=== PATIENT | female | born 1985 | race Caucasian/White ===

== ENCOUNTER 2022-05-26 15:17 | Emergency (ER) | payer MEDICAID ==
[~2022-05-26] VITALS: Ht 177 cm; Wt 114.0 kg
[2022-05-26] MEDS ORDERED: diphenhydrAMINE 50 MG/ML INJ (BENADRYL) IM ONE (16:00)
--- NOTE | 2022-05-26 16:32 | ED Headache ---
General Chief Complaint: Head/Cervical Problems Stated Complaint: MIGRAINE/VOMITING 19 WKS PREG Nursing Triage Note: PT IS 19 WEEKS , HX OF MIGRAINES, STATES MIGRAINE SINCE LAST NIGHT, HAS TAKEN TYLENOL 1 HR AGO BUT THEN THREW UP. G-7 P-2. RECENTLY HAD A SINUS INFECTION FINISHED WITH ABX (AFRICA LEZAMA) History of Present Illness Date Seen by Provider: May 26, 2022 Time Seen by Provider: 03:47 Initial Comments 37yo F 19.2weeks with h/o migraines presents to the ED with a 10/10 migraine with associated photophobia, nausea, and vomiting that started yesterday at 5pm. Pt states that her migraine originally presented similar to past episodes, localized primarily to the frontal region but did not entirely respond to treatments that have relieved her migraines in the past. Pt states that normally she is able to relieve her migraines by taking a bath, using ice packs, and tylenol. Yesterday, pt states that her migraine improved some with tylenol but came back the next morning. Today, pt states that she was unable to relieve her migraine. Pt states that she took two 325mg tylenol at ~2pm today but vomited soon after and her migraine remained unchanged. Pt notes that she experienced 5 episodes of vomiting today d/t her migraine, which is normal for her migraines as well as since she's been . Pt has no h/o increased migraines in previous pregnancies or preeclampsia. Pt's states that her blood pressure has been overall within normal ranges, her last OBGYN appt is was 135/80 and today is 121/58. Pt was recently treated for a sinus and ear infection 12 days ago. Pt was prescribed amoxacillin and finished her course 3 days ago. Pt denies current symptoms being similar to her sinus infection and states complete resolution of symptoms associated with it prior to onset of migraine. Pt denies blurred or loss of vision, recent trauma to head, changes in medications or recent vaccinations, CP, SOB, focal neurologic deficits, weakness, and abd pain. (AFRICA LEZAMA) Allergies and Home Medications Allergies Coded Allergies: No Known Drug Allergies (Unverified , 05/26/22) Patient Home Medication List Home Medication List Reviewed: Yes (AFRICA LEZAMA) Review of Systems Review of Systems Constitutional: No chills, No fever, No weakness Eyes: Denies Blindness, Denies Blurred Vision; Photophobia; Denies Vision Changes Ears, Nose, Mouth, Throat: denies ear pain, denies mouth pain Respiratory: No dyspnea on exertion, No short of breath Cardiovascular: No chest pain, No edema Gastrointestinal: No abdominal pain, No hematemesis, No melena, No nausea, No vomiting Genitourinary: No dysuria, No hematuria Expected Date of Delivery: Oct 19, 2022 Musculoskeletal: No back pain, No neck pain Skin: No change in color, No change in hair/nails Psychiatric/Neurological: No Symptoms Reported (AFRICA LEZAMA) Past Lycqozo-Tganij-Xjvqxk Hx Patient Social History Tobacco Use?: Yes Tobacco type used: Cigarettes Smoking Status: Current Everyday Smoker Substance use?: No Alcohol Use?: No (AFRICA LEZAMA) Past Medical History Surgery/Hospitalization HX: APPENDECTOMY Surgeries: Yes Adenoidectomy Respiratory: Yes Asthma Cardiac: No Neurological: Yes Headaches /Migraines Expected Date of Delivery: Oct 19, 2022 Last Menstrual Period: Jan 12, 2022 Reproductive Disorders: Yes Female Reproductive Disorders: Polycystic Ovarian Dis Genitourinary: No Gastrointestinal: No HEENT: No Cancer: No Psychosocial: Yes Anxiety, Bipolar, Depression Integumentary: No (AFRICA LEZAMA) Family Medical History Heart Disease (MATERNAL SIDE), Cancer (BREAST- MOTHER, MATERNAL GRANDMOTHER, PATERNAL GRANDMOTHER; BONE CX-MATERNAL GRANDMOTHER), Diabetes (AFRICA LEZAMA) Physical Exam Vital Signs Vital Signs - First Documented 05/26/22 15:23 Temp 35.7 Pulse 78 Resp 20 B/P (MAP) 121/58 (79) Pulse Ox 96 O2 Delivery Room Air ([facility]) Vital Signs Capillary Refill : Less Than 3 Seconds (AFRICA LEZAMA) Height, Weight, BMI Height: '" Weight: lbs. oz. kg; 36.00 BMI Method: General Appearance: no apparent distress, obese HEENT: PERRL/EOMI, photophobia Neck: non-tender, full range of motion Cardiovascular: regular rate, rhythm, no murmur Respiratory: lungs clear, normal breath sounds, no respiratory distress, no accessory muscle use Gastrointestinal: non tender, soft Back: no CVA tenderness, no vertebral tenderness Extremities: no pedal edema, no calf tenderness Psychiatric: alert, oriented x 3 Crainal Nerves: normal hearing, normal speech, PERRL Motor/Sensory: no motor deficit, no sensory deficit Skin: normal color, warm/dry (AFRICA LEZAMA) Progress/Results/Core Measures Results/Orders My Orders Orders - ANTHONY PATEL DO Diphenhydramine Injection (Benadryl Inje (05/26/22 16:00) (ANTHONY PATEL DO) Medications Given in ED Current Medications Medications Dose Ordered Sig/Jam Route Start Time Stop Time Status Last Admin Dose Admin Diphenhydramine HCl 50 mg ONCE ONCE IM 05/26/22 16:00 05/26/22 16:01 DC 05/26/22 16:06 50 MG (ANTHONY PATEL DO) Vital Signs/I&O 05/26/22 05/26/22 15:23 16:44 Temp 35.7 35.7 Pulse 78 78 Resp 20 20 B/P (MAP) 121/58 (79) 121/58 Pulse Ox 96 96 O2 Delivery Room Air Room Air (ANTHONY PATEL DO) Blood Pressure Mean: 79 Departure Communication (Admissions) Patient is hemodynamically stable, neurologically intact. Symptoms are exactly the same as previous migraine headaches. No indication for imaging at this time. She is limited because of and that we can treat her with. We gave her an IM Benadryl. She had Tylenol prior to arrival. She relates that her headaches are trending down as they usually do prior to complete resolution. She feels comfortable discharge at this time after provided therapies. She has nausea medicines at home. She has been nauseated mostly throughout her and is unchanged. Blood pressures not elevated, no evidence for preeclampsia at this time. (ANTHONY PATEL DO) Impression Primary Impression: Migraine headache Qualified Codes: G43.909 - Migraine, unspecified, not intractable, without status migrainosus Disposition: HOME, SELF-CARE Condition: Stable Departure-Patient Inst. Referrals: NO,LOCAL PHYSICIAN (PCP/Family) Primary Care Physician Patient Instructions: Migraines (DC) Add. Discharge Instructions: Continue to use Tylenol and Benadryl as needed for headaches. Increase your fluids at home. Continue home nausea medicines as previously prescribed for . Return to the emergency department for any severe concerns, specifically if you develop any changes in your vision, elevated blood pressures or if your symptoms change in any way concerning to you. Follow-up with your primary doctor for any nonemergent needs. All discharge instructions reviewed with patient and/or family. Voiced understanding. AFRICA LEZAMA May 26, 2022 16:32 ANTHONY PATEL DO May 26, 2022 16:36
[2022-05-26 16:44] VITALS: BP 121/58
== END 2022-05-26 16:44 | disposition home or self-care (01) ==
LOC: ER 15:20
DX: O99.352 Diseases of the nervous system complicating pregnancy, second trimester (principal); G43.909 Migraine, unspecified, not intractable, without status migrainosus; O99.332 Smoking (tobacco) complicating pregnancy, second trimester; F17.210 Nicotine dependence, cigarettes, uncomplicated; Z3A.19 19 weeks gestation of pregnancy
CPT/HCPCS: 99284

== ENCOUNTER 2022-06-24 10:57 | Outpatient (CLI) | payer MEDICAID ==
[~2022-06-24] VITALS: Ht 177.8 cm; Wt 116.3 kg
[2022-06-24 11:15] VITALS: BP 107/58
[2022-06-24 11:25] LABS: BILIRUBIN,URINE NEGATIVE (NEGATIVE); CLARITY,URINE CLEAR; COLOR,URINE YELLOW; GLUCOSE, URINE (UA) NEGATIVE (NEGATIVE); KETONES,URINE NEGATIVE (NEGATIVE); LEUKOCYTE ESTERASE ,URINE TRACE (NEGATIVE); NITRITE,URINE NEGATIVE (NEGATIVE); PROTEIN,URINE NEGATIVE (NEGATIVE)
[2022-06-24 11:34] LABS: AMORPHOUS SEDIMENT,UR MOD AMOR PHOSPHATE /LPF; BACTERIA,URINE NEGATIVE /HPF; SQUAMOUS EPITHELIAL CELL,UR 25-50 /HPF
--- NOTE | 2022-06-25 08:40 | Physician Query-Final Dx ---
Clinic Account Progress/Dx Physician Query: Please give diagnosis Please include # weeks gestation Date of Service Jun 24, 2022 at 10:57 THOR,MayJun 25, 2022 08:40
== END 2022-06-24 12:00 | disposition home or self-care (01) ==
LOC: LDRP 10:57 → WSo 10:57
PROVIDERS: ATTEND Family Medicine
DX: O47.9 False labor, unspecified (principal); O99.891 Other specified diseases and conditions complicating pregnancy; T17.990A Other foreign object in respiratory tract, part unspecified in causing asphyxiation, initial encounter; Z3A.00 Weeks of gestation of pregnancy not specified
CPT/HCPCS: 81000; 99212

== ENCOUNTER 2022-08-26 08:27 | Outpatient (CLI) | payer MEDICAID ==
[~2022-08-26] VITALS: Ht 177.8 cm; Wt 119.2 kg
[2022-08-26 08:43] VITALS: BP 131/59
[2022-08-26] MEDS ORDERED: HYDR28.480 TP (09:07)
[2022-08-26] MEDS ORDERED: RT-ALBUINH INH (09:07)
[2022-08-26] MEDS ORDERED: PREN1TAB79 PO (09:07)
[2022-08-26] MEDS ORDERED: IRON45TA6 PO (09:07)
[2022-08-26] MEDS ORDERED: NICO-587 (09:07)
[2022-08-26] MEDS ORDERED: ASCO250T55 PO (09:07)
[2022-08-26 09:32] LABS: BILIRUBIN,URINE NEGATIVE (NEGATIVE); CLARITY,URINE CLEAR; COLOR,URINE YELLOW; GLUCOSE, URINE (UA) NEGATIVE (NEGATIVE); KETONES,URINE NEGATIVE (NEGATIVE); LEUKOCYTE ESTERASE ,URINE NEGATIVE (NEGATIVE); NITRITE,URINE NEGATIVE (NEGATIVE); PROTEIN,URINE NEGATIVE (NEGATIVE)
[2022-08-26 10:04] LABS: BACTERIA,URINE NEGATIVE /HPF
[2022-08-26 10:30] VITALS: BP 107/55
--- NOTE | 2022-08-27 09:12 | Physician Query-Final Dx ---
Clinic Account Progress/Dx Physician Query: Please give diagnosis Please include # weeks gestation Date of Service Aug 26, 2022 at 08:27 WHEAT,MayAug 27, 2022 09:12
== END 2022-08-26 10:32 ==
LOC: WSo 08:27 → LDRP 08:27 → WSo 10:32
PROVIDERS: ATTEND Family Medicine
DX: O36.8130 Decreased fetal movements, third trimester, not applicable or unspecified (principal); Z3A.32 32 weeks gestation of pregnancy
CPT/HCPCS: 81000

== ENCOUNTER 2022-09-20 17:59 | Outpatient (CLI) | payer MEDICAID ==
[~2022-09-20] VITALS: Ht 177.8 cm; Wt 119.5 kg
[~2022-09-20 17:59] MED LIST: ASCO250T55 PO; HYDR28.480 TP; IRON45TA6 PO; NICO-587; PREN1TAB79 PO; RT-ALBUINH INH
[2022-09-20 18:17] LABS: BILIRUBIN,URINE 1+ (NEGATIVE); CLARITY,URINE CLOUDY; COLOR,URINE YELLOW; GLUCOSE, URINE (UA) NEGATIVE (NEGATIVE); KETONES,URINE NEGATIVE (NEGATIVE); LEUKOCYTE ESTERASE ,URINE 1+ (NEGATIVE); NITRITE,URINE NEGATIVE (NEGATIVE); PROTEIN,URINE TRACE (NEGATIVE)
[2022-09-20] MEDS ORDERED: CALC200T33 PO (18:32)
[2022-09-20] MEDS ORDERED: FAMO10TA43 PO (18:32)
[2022-09-20 18:37] VITALS: BP 101/54
[2022-09-20 18:51] LABS: BACTERIA,URINE FEW /HPF; RBC,URINE 0-2 /HPF; SQUAMOUS EPITHELIAL CELL,UR 25-50 /HPF
[2022-09-20 18:52] LABS: AMORPHOUS SEDIMENT,UR LARGE AMOR PHOSPHATE /LPF
[2022-09-20] MEDS ORDERED: LACTATED RINGERS 1,000 ML IV SCH ×2 (19:02→19:15)
[2022-09-20 19:30] VITALS: BP 123/63
[2022-09-20 19:45] LABS: BASOPHILS % (AUTO) 0 % (0-10); EOSINOPHILS # (AUTO) 0.5 10^3/uL (0.0-0.3); EOSINOPHILS % (AUTO) 4 % (0-10); HEMATOCRIT 29 % (35-52); HEMOGLOBIN 9.5 g/dL (11.5-16.0); LYMPHOCYTES # (AUTO) 2.7 10^3/uL (1.0-4.0); LYMPHOCYTES % (AUTO) 20 % (12-44); MEAN CORPUSCULAR HEMOGLOBIN 27 pg (25-34); MEAN CORPUSCULAR HGB CONC 33 g/dL (32-36); MEAN CORPUSCULAR VOLUME 82 fL (80-99); MEAN PLATELET VOLUME 9.5 fL (9.0-12.2); MONOCYTES # (AUTO) 0.7 10^3/uL (0.0-1.0); MONOCYTES % (AUTO) 6 % (0-12); NEUTROPHILS # (AUTO) 9.1 10^3/uL (1.8-7.8); NEUTROPHILS % (AUTO) 69 % (42-75); PLATELET COUNT 338 10^3/uL (130-400); WHITE BLOOD COUNT 13.2 10^3/uL (4.3-11.0)
[2022-09-20 20:04] LABS: ALBUMIN 2.9 GM/DL (3.2-4.5); BILIRUBIN,TOTAL 0.2 MG/DL (0.1-1.0); CALCIUM 8.7 MG/DL (8.5-10.1); CREATININE SERUM 0.62 MG/DL (0.60-1.30); POTASSIUM 3.3 MMOL/L (3.6-5.0)
[2022-09-20] MEDS ORDERED: KCL 20 MEQ TAB (K-DUR) PO ONE (20:30)
--- NOTE | 2022-09-23 08:37 | Physician Query-Final Dx ---
THOR,09/23/22 0837: Clinic Account Progress/Dx Physician Query: Please give diagnosis Please include # weeks gestation Date of Service September 20, 2022 at 17:59 HONORIO AGUIAR DO 09/23/22 0912: Clinic Account Progress/Dx DIAGNOSIS: Diagnosis 35 wk Ga edema hypokalemia vomiting THOR,MaySeptember 23, 2022 08:37 HONORIO AGUIAR DO September 23, 2022 09:12
== END 2022-09-20 20:58 | disposition home or self-care (01) ==
LOC: LDRP 17:59 → WSo 17:59
PROVIDERS: ATTEND Family Medicine
DX: O26.899 Other specified pregnancy related conditions, unspecified trimester (principal); R60.9 Edema, unspecified; Z3A.00 Weeks of gestation of pregnancy not specified
CPT/HCPCS: 36415; 80053; 81000; 85025

== ENCOUNTER 2022-09-27 10:10 | Inpatient (IN) | payer MEDICAID ==
[2022-09-27] VITALS (46 sets, daily range): BP systolic 96–148; BP diastolic 46–76
[~2022-09-27] VITALS: Ht 177.8 cm; Wt 119.3 kg
[~2022-09-27 10:10] MED LIST changes: +CALC200T33 PO; +FAMO10TA43 PO
--- OUTSIDE RECORDS SUMMARY | 2022-09-27 10:31 | XMS REPORT ---
Author Author [facility] Address Unknown Phone Unavailable Care Team Providers Care Hand Box Folder Name Role Phone ANGELITA PIPER Unavailable PROBLEMS Type Condition ICD9-CM Code [id number] Code Onset Dates Condition S tatus W/U Status Risk SNOMED Code Notes Problem Nausea and vomiting, unspecified vomiting type R11.2 confirmed 12195398 Problem Severe episode of recurrent major depressive disorder, without psychotic features F33.2 confirmed 54374734 Problem Anxiety F41.9 confirmed 44481864 Problem care in first trimester Z34.91 Problem resolved confirmed 570361466 Problem care in second trimester Z34.92 con firmed Problem Multigravida of advanced maternal age in first trimester O09.521 confirmed 646715942 Problem Bipolar affective disorder, currently depressed, moderate F31.32 confirmed 115165909 Problem Mild intermittent asthma with acute exacerbation J45.21 confirmed 373219824 Problem Mild persistent asthma, unspecified whether complicated J45.30 confirmed 055788192 Problem Asthma exacerbation J45.901 confirmed [id number] ALLERGIES Allergen (clinical drug ingredient) Drug/Non Drug Allergy do cumented on EMR Reaction Allergy Type Onset Date Status Vicodin nausea Drug Allergy Active ENCOUNTERS from 1986 to 2022-08-01 Encounter Location Date Provider Diagnosis [facility] [id number] [place] [address] Aug, ANGELITA PIPER Cough R05 ; Asthma exacerbat ion J45.901 and Tobacco abuse counseling Z71.6 IMMUNIZATIONS Vaccine Route Administration Date Status PRIVATE FLULAVAL QUAD 0.5ML (6 MO AND UP) 2018 IM Intramuscular Mar 12, 2018 Administered PRIVATE FLULAVAL QUAD 0.5ML (6 MO AND UP) 2019 IM Intramuscular Feb 19, 2020 Administered PRIVATE FLULAVAL QUAD 0.5ML (6 MO AND UP) 2020 IM Intramuscular Feb 03, 2021 Administered 1st Booster MODERNA Bivalent, COVID-19, 0.5mL IM Intramuscular O ct 2021 Administered PRIVATE FLU 22-23 (FLULAVAL) AGE 6MO AND UP IM Intramuscular Feb 25, 2022 Administered SOCIAL HISTORY Sex Assigned At : Social History Observation Description Sex Assigned At Unknown Alcohol Screen (Audit-C) Question Answer Notes Did you have a drink containing alcohol in the past year? Ye s Points 1 Interpretation Negative How often did you have 6 or more drinks on one occasio n in the past year? Never (0 points) How many drinks did you have on a typica l day when you were drinking in the past year? 1 or 2 (0 points) How often did you have a drink containing alcohol in t he past year? Monthly or less (1 point) Cessation Question Answer Notes Date Tobacco Cessation Provided: 03/02/2019 not amanda madisyn to quit at this time Sexual History Question Answer Notes Had sex in the past 12 months (vaginal, oral, or anal)? Yes with Men only PHQ2 Question Answer Notes In the last 2 weeks, how often have you had little interest or pleasure in doing things? Not at all In the last 2 weeks, how often have you been feeling down, depressed, or hopeless? Not at all Total PHQ2 Score 0 REASON FOR REFERRAL No Information VITAL SIGNS Height 70 in Aug, Temperature 98 degrees Fahrenheit Aug, Heart Rate 80 bpm Aug, Respiratory Rate 18 bpm Aug, Oximetry 95 % Aug, MEDICATIONS Medication SIG (Take, Route, Frequency, Duration) Notes Start Da te End Date Status Adult Gummy/DHA/FA nature made gummies Active Albuterol Sulfate HFA 108 (90 Base) MCG/ACT 1 puff as needed Inhalation every 4 hrs prn Not-Taking Nicotine 7 MG/24HR 1 patch to skin Transdermal Once a day for 30 days Jun, Active FeroSul 325 (65 Fe) MG TAKE 1 TABLET BY MOUTH ONCE DAILY for 30 Active Vitamin C 500 MG TAKE ONE (1) TABLET BY MOUTH ONCE DAILY for 30 Active PROCEDURES No Information RESULTS No Results REASON FOR VISIT Cough, seasonal allergies. possible pheumonia. 1x week. wperdomo ma MEDICAL (GENERAL) HISTORY Type Description Date Medical History Anxiety disorder Medical History bipolar disorder Medical History depression Medical History schizophrenia/borderline Medical History asthma Medical History care in first trimester ([facility] ed 04/22/2022) Surgical History appendectomy 09/2017 Hospitalization History childbirth only Hospitalization History appendectomy 09/2017 Goals Section No Information Health Concerns No Information MEDICAL EQUIPMENT No Information MENTAL STATUS No Information FUNCTIONAL STATUS No Information ASSESSMENTS Encounter Date Diagnosis Assessment Notes Treatment Notes Treatm ent Clinical Notes Aug, Cough (ICD-10 - R05) Aug, Asthma exacerbation (ICD-10 - J45.901) discussed dx and tx, use albuterol every 4 hours, start medication now, f/u with PCP in 5-7 days however must go to ER for any worsening symptoms Aug, Tobacco abuse counseling (ICD-10 - Z71.6 ) PLAN OF TREATMENT Treatment Notes Assessment Notes Clinical Notes Asthma exacerbation discussed dx and tx, use alb uterol every 4 hours, start medication now, f/u with PCP in 5-7 days however must go to ER for any worsening symptoms Next Appt Details 1 Week with Jordana Reason:Asthma Provider Name:ALISA GONZALEZ, 04:00:00 PM, [address] [place], [address], Provider Name:ANGELA MACDONALD, 2022-08-10 3 02:00:00 PM, [address] [place], [address], Provider Name:ALISA GONZALEZ, 03:40:00 PM, [address] [place], [address], Provider Name:HARI HERNANDEZ, 2022-09-12 0 4:00:00 PM, [address] [facility], [id number], [address], [facility] Insurance Providers Payer Name Payer Address Payer Phone Insured Name Patient Relati onship to Insured Coverage Start Date Coverage End Date Subscriber Number [facility] [place] [facility] COVID19 [facility] Uninsured [employer] [facility] A ttention CARES Act Provider Relief Fund [address] [address] [facility] [address] Rosio Gibson Self - patient is the insured 2019 2021 [id number] ALCIRA SCION SK[employer]GEN 19 [employer] Better [employer] [address] [place] [facility] [address] Rosio Gibson Self - patient is the insured [id number] COVID19 [facility] Uninsured [employer] [facility] A ttention CARES Act Provider Relief Fund [address] [address] [facility] [address] Rosio Gibson Self - patient is the insured 2020 2020 [id number] ALCIRA [employer] 19 [address] [address] [facility] [address] Rosio Gibson Self - patient is the insured 2022 [id number] MEDICATIONS ADMINISTERED Medication Instructions Date of Administration Dosage SOLUMEDROL (UP TO 125 MG) Dec, 125 mg Promethazine HCl Apr, 25 mg Rocephin Mar, 1 g
[2022-09-27] MEDS ORDERED: MINERAL OIL 30 ML UDC TOP PRN (10:45)
[2022-09-27] MEDS ORDERED: OXYTOCIN PRE-MIX DRIP 500 ML IV SCH ×2 (10:45→22:45)
[2022-09-27] MEDS ORDERED: AMPICILLIN 2,000 MG/14.8 ML (IV USE) ONE (10:52)
[2022-09-27] MEDS ORDERED: NS (IVPB) 50 ML ONE (10:52)
[2022-09-27] MEDS: D5 LR IV SOLUTION 1,000 ML IV SCH ×2 (11:12→20:54)
[2022-09-27 11:23] LABS: BASOPHILS % (AUTO) 0 % (0-10); EOSINOPHILS # (AUTO) 0.4 10^3/uL (0.0-0.3); EOSINOPHILS % (AUTO) 3 % (0-10); HEMATOCRIT 30 % (35-52); LYMPHOCYTES # (AUTO) 1.8 10^3/uL (1.0-4.0); LYMPHOCYTES % (AUTO) 14 % (12-44); MEAN CORPUSCULAR HEMOGLOBIN 27 pg (25-34); MEAN CORPUSCULAR HGB CONC 33 g/dL (32-36); MEAN CORPUSCULAR VOLUME 81 fL (80-99); MEAN PLATELET VOLUME 9.6 fL (9.0-12.2); MONOCYTES # (AUTO) 0.7 10^3/uL (0.0-1.0); MONOCYTES % (AUTO) 5 % (0-12); NEUTROPHILS # (AUTO) 10.4 10^3/uL (1.8-7.8); NEUTROPHILS % (AUTO) 78 % (42-75); PLATELET COUNT 364 10^3/uL (130-400); WHITE BLOOD COUNT 13.4 10^3/uL (4.3-11.0)
[2022-09-27] MEDS ORDERED: NICO-586 TD (11:29)
--- NOTE | 2022-09-27 13:20 | History & Physical-OB ---
OB - Chief Complaint & HPI Date/Time Date of Admission: Date of Admission: September 27, 2022 at 10:10 Date seen by a Provider: September 27, 2022 Time Seen by a Provider: 09:15 Chief Complaint/History OB-Reason for Admission/Chief: Rupture of Membranes Hx : 8 Hx Para: 2502 Expected Date of Delivery: Oct 19, 2022 Gestational Age in Weeks: 36 Gestational Age in Days: 6 History of Labs O pos, antibody neg, RNI. HIV/HepB/HepC/RPR NR. cell free DNA testing normal. 1 hour glucola normal. GBS unknown (pending). Other 37 yo female presented for routine Ob visit, reported leaking fluid since the night prior, found to have positive pooling, nitrazine and ferning test in clinic. Also 5 cm dilated. Allergies and Home Medications Allergies Coded Allergies: acetaminophen (Verified Allergy, Mild, Nausea, 09/20/22) and dizziness hydrocodone (Verified Allergy, Mild, Nausea, 09/20/22) and dizziness Patient Home Medication List Home Medication List Reviewed: Yes Albuterol Sulfate (Ventolin Hfa) 1 Puff Puff, 1 PUFF INH Q4H, (Reported) Entered as Reported by: DIPAK SWAN on 08/26/22906 Last Action: Reviewed Ascorbic Acid/Ascorbate Sodium (Vitamin C 250 mg Tablet Chew) 250 Mg Tab.chew, 250 MG PO, (Reported) Entered as Reported by: DIPAK SWAN on 08/26/22906 Last Action: Reviewed Calcium Carbonate (Tums [place]hers) 200 Mg Calcium (500 Mg) Tab.chew, 200 MG PO PRN, (Reported) Entered as Reported by: PATRICIO RING on 09/20/221831 Last Action: Reviewed Famotidine (Pepcid AC) 10 Mg Tablet, 10 MG PO ONCE PRN for d, (Reported) Entered as Reported by: PATRICIO RING on 09/20/221831 Last Action: Reviewed Hydrocortisone/Aloe Vera (Hydrocortisone Plus 1% Cream) 1 % Cream..g., 28.4 GM TP, (Reported) Entered as Reported by: DIPAK SWAN on 08/26/22906 Last Action: Reviewed Iron,Carbonyl (Feosol) 45 Mg Tablet, 45 MG PO, (Reported) Entered as Reported by: DIPAK SWAN on 08/26/22906 Last Action: Reviewed Nicotine (Nicotine Patch) 7 Mg/24 Hour Patch.td24, 7 MG TD DAILY, (Reported) Entered as Reported by: GADIEL STEELE on 09/27/221128 Last Action: New Order Vit W-Ca,Fe,FA(<1 mg) ( Vitamins) 27 Mg Iron-800 Mcg Tablet, 1 EACH PO, (Reported) Entered as Reported by: DIPAK SWAN on 08/26/22906 Last Action: Reviewed Discontinued Medications Nicotine (Nicotine Patch) 14 Mg/24 Hour Patch.td24, (Reported) Discontinued Reason: No Longer Taking Entered as Reported by: DIPAK SWAN on 08/26/22906 OB - History Hx of Present Ultrasounds: Normal mid trimester US Information Induced Hypertension: No Maternal Gestational Diabetes: No Hemorrhage: No Obstetrical History Hx : 8 Hx Para: 2 Hx # Term Pregnancies: 2 Hx # Pregnancies: 0 Number of Living Children: 2 Hx Total # of Abortions (Spona: 5 Hx Multiple Gestation: No Hx Ectopic : No Hx Stillbirth: No Hx Complication: No Hx Induced Hypertens: No Hx Maternal Gestational Diabet: No Hx Hemorrhage: No Delivery History Hx Dystocia: No Hx Forceps Assisted Delivery: No Hx Vacuum Extraction Assisted: No Hx Placenta Abnormality: No Hx Distress: No Hx Large For Gestational Age I: No Hx Small for Gestational Age I: No Hx Section: No Hx Vaginal Delivery Post C-Sec: No Hx Blood Disorders: No Adverse Rxn to Tranfusion: No Patient Past Medical History PMHx: Asthma PCOS Bipolar disorder SurgHx: Appendectomy Social History/Family History Alcohol Use: Denies Use Recreational Drug Use: No Smoking Cessation: Former smoker (started nicotine replacement in to quit smoking) 2nd Hand Smoke Exposure: No Immunizations Influenza Vaccine Up-to-Date: Yes; Up-to-Date Hepatitis A: Yes Hepatitis B: Yes Tetanus Booster (TDap): Less than 5yrs Rubella: immune RPR/VDRL: Negative GBS Status: Unknown HBsAG: Negative OB - Admission Exam Physical Exam Vitals: Vital Signs 09/27/22 10:30 Temp 36.8 Pulse 96 Resp 20 B/P (MAP) 112/56 (74) Pulse Ox 94 O2 Delivery Room Air HEENT: NCAT Cervical Dilatation: 5cm Effacement: 25% Station: -3 Membranes: Ruptured Heart Rate: 130's Labs Laboratory Tests Test 09/27/22 11:00 Range/Units White Blood Count 13.4 H 4.3-11.0 10^3/uL Red Blood Count 3.73 L 3.80-5.11 10^6/uL Hemoglobin 10.0 L 11.5-16.0 g/dL Hematocrit 30 L 35-52 % Mean Corpuscular Volume 81 80-99 fL Mean Corpuscular Hemoglobin 27 25-34 pg Mean Corpuscular Hemoglobin Concent 33 32-36 g/dL Red Cell Distribution Width 13.8 10.0-14.5 % Platelet Count 364 130-400 10^3/uL Mean Platelet Volume 9.6 9.0-12.2 fL Immature Granulocyte % (Auto) 1 % Neutrophils (%) (Auto) 78 H 42-75 % Lymphocytes (%) (Auto) 14 12-44 % Monocytes (%) (Auto) 5 0-12 % Eosinophils (%) (Auto) 3 0-10 % Basophils (%) (Auto) 0 0-10 % Neutrophils # (Auto) 10.4 H 1.8-7.8 10^3/uL Lymphocytes # (Auto) 1.8 1.0-4.0 10^3/uL Monocytes # (Auto) 0.7 0.0-1.0 10^3/uL Eosinophils # (Auto) 0.4 H 0.0-0.3 10^3/uL Basophils # (Auto) 0.0 0.0-0.1 10^3/uL Immature Granulocyte # (Auto) 0.1 0.0-0.1 10^3/uL OB - Assessment/Plan/Diagnosis Assessment Admission Dx rupture of membranes Advanced cervical dilation Admission Status: Inpatient Order (span 2 midnights) Reason for Inpatient Admission: Labor, delivery and course Plan Plan: Other (ampicillin for GBS unknown at 36w6d, pitocin due to rupture of membranes over 12 hours ago) Induction Method: per Pitocin Protocol ANGELA MACDONALD MD September 27, 2022 13:20
[2022-09-27] MEDS ORDERED: fentaNYL 2 mcg/ml BUPIVA 0.125 100 ML ONE (13:51)
[2022-09-27] MEDS ORDERED: CATHETER FLUSH 10 ML SYR IV SCH (14:00)
[2022-09-27] MEDS: fentaNYL 2 mcg/ml BUPIVA 0.125 100 ML EPI SCH ×2 (14:17→20:54)
[2022-09-27] MEDS ORDERED: LACTATED RINGERS 1,000 ML IV SCH (14:30)
[2022-09-27] MEDS ORDERED: METOCLOPRAMIDE INJ 10 MG/2 ML (REGLAN) IV PRN (14:30)
[2022-09-27] MEDS ORDERED: ONDANSETRON 4 MG/2 ML (SDV) Z0FRAN IV PRN (14:30)
[2022-09-27] MEDS ORDERED: diphenhydrAMINE 50 MG/ML INJ (BENADRYL) IV PRN (14:30)
[2022-09-27] MEDS ORDERED: NALOXONE 0.4 MG/ML 1 ML (NARCAN) VIAL IV PRN ×2 (14:30)
[2022-09-27] MEDS: AMPICILLIN FOR IV USE 1,000 MG in NS (IVPB) 50 ML IV SCH ×2 (15:04→19:00)
--- NOTE | 2022-09-27 17:11 | Labor Progress Note ---
Labor Progress Note Labor Progress Note Date Seen by Provider: September 27, 2022 Time Seen by Provider: 16:50 Subjective: Pt denies complaints. Objective: Cervical exam: / Consistency: soft Position: anterior Presentation: vertex heart tones: 120 beats per minute, moderate variability, accelerations present, 2 variable decelerations noted with maternal position change Tocometer: 4 ctx/10 minutes Assessment/Plan: Rosio Gibson is a 37 /Para 8 / 2502,Gestational Age (wks)36 here for leaking amniotic fluid. Ruptured forebag at this time with clear fluid return. CEFM/TOCO Continue pitocin Anesthesia: Epidural Anticipate vaginal delivery. Vitals - Labs Vital Signs - I&O Vital Signs Date Time Temp Pulse Resp B/P (MAP) Pulse Ox O2 Delivery O2 Flow Rate FiO2 09/27/22 15:00 69 105/51 (69) 96 09/27/22 14:57 62 106/53 (70) 96 09/27/22 14:54 74 102/52 (69) 96 09/27/22 14:51 68 115/55 (75) 95 09/27/22 14:48 72 111/56 (74) 95 09/27/22 14:45 70 111/53 (72) 95 09/27/22 14:42 76 113/54 (73) 96 09/27/22 14:39 75 115/58 (77) 96 09/27/22 14:36 77 111/55 (73) 96 09/27/22 14:33 71 109/49 (69) 97 09/27/22 14:30 76 111/56 (74) 97 09/27/22 14:27 79 113/54 (73) 96 09/27/22 14:25 89 114/57 (76) 96 09/27/22 14:22 73 124/58 (80) 97 09/27/22 14:19 36.4 74 122/56 (78) 96 09/27/22 14:16 83 123/67 (85) 97 09/27/22 14:13 67 120/58 (78) 09/27/22 14:10 73 121/76 (91) 97 Room Air 09/27/22 14:00 78 117/59 (78) 09/27/22 13:45 74 122/57 (78) 09/27/22 13:30 72 130/68 (88) 09/27/22 13:00 75 130/68 (88) 09/27/22 12:45 76 127/60 (82) 09/27/22 12:30 82 119/56 (77) 09/27/22 12:15 68 114/56 (75) 09/27/22 12:05 84 118/64 (82) 09/27/22 11:50 36.9 86 96/46 (63) Room Air 09/27/22 10:30 36.8 96 20 94 Room Air 09/27/22 10:30 36.8 96 20 112/56 (74) 94 Room Air Labs Laboratory Tests 09/27/22 11:00: White Blood Count 13.4H, Red Blood Count 3.73L, Hemoglobin 10.0L, Hematocrit 30L , Mean Corpuscular Volume 81, Mean Corpuscular Hemoglobin 27, Mean Corpuscular Hemoglobin Concent 33, Red Cell Distribution Width 13.8, Platelet Count 364, Mean Platelet Volume 9.6, Immature Granulocyte % (Auto) 1, Neutrophils (%) (Auto) 78H, Lymphocytes (%) (Auto) 14, Monocytes (%) (Auto) 5, Eosinophils (%) (Auto) 3, Basophils (%) (Auto) 0, Neutrophils # (Auto) 10.4H, Lymphocytes # (Auto) 1.8, Monocytes # (Auto) 0.7, Eosinophils # (Auto) 0.4H, Basophils # (Auto) 0.0, Immature Granulocyte # (Auto) 0.1 ANGELA MACDONALD MD September 27, 2022 17:11
--- NOTE | 2022-09-27 22:41 | OB Labor & Delivery Record ---
Vag Delivery Note Vag Delivery Note Date of Delivery: 09/27/22 Preoperative Diagnosis: Rosio Gibson is a (37 /Para 8 / 2,Gestational Age (wks)37with 6 days Postoperative Diagnosis: Same Surgeon: ANGELA MACDONALD Anesthesia: Epidural Delivery Type: Findings: Viable male , apgars 8/8, weight pending Lacerations: periurethral abrasion Intact placenta with 3 vessel cord. No nuchal cord, body cord or shoulder dystocia Estimated Blood Loss: 300 ml Complications: None Condition: Stable Description of Procedure: The patient is a 37 year old female who presented with rupture of membranes. She was admitted and informed consent was obtained. Her labor course was remarkable for augmentation with oxytocin. She progressed to complete dilatation and began to push. She was then set up for delivery. The infant's head was delivered atraumatically in the OA position. The shoulders and remainder of the 's body were then delivered without difficulty. Upon delivery, the was vigorous and placed on maternal chest and the mouth and nares were bulb suctioned. After a delay cord was doubly clamped and cut and the infant remained on maternal chest. An intact placenta with 3-vessel cord delivered via Dev and there was found to be minimal bleeding.~ Vigorous fundal massage was performed and the fundus was found to be firm. IV oxytocin was given. Examination of the vagina and perineum revealed no lacerations requiring repair. Following the delivery, sponge, instrument and needle counts were correct. Mom and baby were both in stable condition in the labor suite. Vitals - Labs Vital Signs - I&O Vital Signs Date Time Temp Pulse Resp B/P (MAP) Pulse Ox O2 Delivery O2 Flow Rate FiO2 09/27/22 15:00 69 105/51 (69) 96 09/27/22 14:57 62 106/53 (70) 96 09/27/22 14:54 74 102/52 (69) 96 09/27/22 14:51 68 115/55 (75) 95 09/27/22 14:48 72 111/56 (74) 95 09/27/22 14:45 70 111/53 (72) 95 09/27/22 14:42 76 113/54 (73) 96 09/27/22 14:39 75 115/58 (77) 96 09/27/22 14:36 77 111/55 (73) 96 09/27/22 14:33 71 109/49 (69) 97 09/27/22 14:30 76 111/56 (74) 97 09/27/22 14:27 79 113/54 (73) 96 09/27/22 14:25 89 114/57 (76) 96 09/27/22 14:22 73 124/58 (80) 97 09/27/22 14:19 36.4 74 122/56 (78) 96 09/27/22 14:16 83 123/67 (85) 97 09/27/22 14:13 67 120/58 (78) 09/27/22 14:10 73 121/76 (91) 97 Room Air 09/27/22 14:00 78 117/59 (78) 09/27/22 13:45 74 122/57 (78) 09/27/22 13:30 72 130/68 (88) 09/27/22 13:00 75 130/68 (88) 09/27/22 12:45 76 127/60 (82) 09/27/22 12:30 82 119/56 (77) 09/27/22 12:15 68 114/56 (75) 09/27/22 12:05 84 118/64 (82) 09/27/22 11:50 36.9 86 96/46 (63) Room Air 09/27/22 10:30 36.8 96 20 94 Room Air 09/27/22 10:30 36.8 96 20 112/56 (74) 94 Room Air Labs Laboratory Tests 09/27/22 11:00: White Blood Count 13.4H, Red Blood Count 3.73L, Hemoglobin 10.0L, Hematocrit 30L , Mean Corpuscular Volume 81, Mean Corpuscular Hemoglobin 27, Mean Corpuscular Hemoglobin Concent 33, Red Cell Distribution Width 13.8, Platelet Count 364, Mean Platelet Volume 9.6, Immature Granulocyte % (Auto) 1, Neutrophils (%) (Auto) 78H, Lymphocytes (%) (Auto) 14, Monocytes (%) (Auto) 5, Eosinophils (%) (Auto) 3, Basophils (%) (Auto) 0, Neutrophils # (Auto) 10.4H, Lymphocytes # (Auto) 1.8, Monocytes # (Auto) 0.7, Eosinophils # (Auto) 0.4H, Basophils # (Auto) 0.0, Immature Granulocyte # (Auto) 0.1, Syphilis Serology Non-Reactive ANGELA MACDONALD MD September 27, 2022 22:41
[2022-09-27] MEDS: IBUPROFEN 600 MG (MOTRIN) TAB PO SCH (22:45)
[2022-09-27] MEDS ORDERED: BENZOCAINE/MENTHOL (DERMOPLAST) 56 ML CAN TP PRN (22:45)
[2022-09-27] MEDS ORDERED: MEASLES,MUMPS,RUBELLA 1 EA INJ SQ ONE (22:45)
[2022-09-27] MEDS ORDERED: WITCH HAZEL(TUCKS) 40 EA JAR TOP PRN (22:45)
[2022-09-27] MEDS ORDERED: OXYTOCIN PRE-MIX DRIP 500 ML IV ONE (22:47)
[2022-09-28] VITALS (9 sets, daily range): BP systolic 107–130; BP diastolic 52–66
[2022-09-28 05:58] LABS: BASOPHILS % (AUTO) 0 % (0-10); EOSINOPHILS # (AUTO) 0.3 10^3/uL (0.0-0.3); EOSINOPHILS % (AUTO) 2 % (0-10); HEMATOCRIT 26 % (35-52); HEMOGLOBIN 8.6 g/dL (11.5-16.0); LYMPHOCYTES % (AUTO) 14 % (12-44); MEAN CORPUSCULAR HEMOGLOBIN 27 pg (25-34); MEAN CORPUSCULAR HGB CONC 34 g/dL (32-36); MEAN CORPUSCULAR VOLUME 82 fL (80-99); MEAN PLATELET VOLUME 10.2 fL (9.0-12.2); MONOCYTES # (AUTO) 0.8 10^3/uL (0.0-1.0); MONOCYTES % (AUTO) 5 % (0-12); NEUTROPHILS # (AUTO) 11.2 10^3/uL (1.8-7.8); NEUTROPHILS % (AUTO) 78 % (42-75); PLATELET COUNT 305 10^3/uL (130-400); WHITE BLOOD COUNT 14.5 10^3/uL (4.3-11.0)
[2022-09-28] MEDS: IBUPROFEN 600 MG (MOTRIN) TAB PO SCH ×3 (08:00→19:58)
[2022-09-28] MEDS: FERROUS SULF 325 MG (IRON) TAB PO SCH (08:00)
[2022-09-28] MEDS: PRENATAL VITAMIN 1 EA TAB PO SCH (08:00)
[2022-09-28] MEDS: DOCUSATE SODIUM 100 MG (COLACE) CAP PO SCH ×2 (08:00→19:58)
--- NOTE | 2022-09-28 08:27 | Postpartum Progress Note ---
Note Note Day # 1 Subjective: Patient is without complaints. Ambulating, voiding. Tolerating a regular diet without nausea or vomiting. Normal lochia. Pain is well controlled with oral pain medications. Breast feeding and supplementing with bottle. Objective: Vital Signs 09/28/22 08:04 Temp 36.3 Pulse 78 Resp 18 B/P (MAP) 111/53 (72) Pulse Ox 97 O2 Delivery Room Air Physical Exam: General - Alert and oriented, no apparent distress Lungs CTAB Heart RRR Abdomen - Soft, appropriately tender to palpation, non-distended, fundus firm at umbilicus Extremities - no edema Assessment: post- day # 1, status post spontaneous vaginal delivery. Recovering well, hemodynamically stable Asymptomatic anemia Plan: Routine care. Encourage breast feeding. Encourage ambulation. Ferrous sulfate supplementation. Plan for discharge tomorrow Vitals - Labs Vital Signs - I&O Vital Signs Date Time Temp Pulse Resp B/P (MAP) Pulse Ox O2 Delivery O2 Flow Rate FiO2 09/28/22 06:19 36.6 67 18 130/59 (82) 96 Room Air 09/28/22 01:50 84 18 107/52 (70) 09/28/22 00:50 70 18 127/64 (85) 09/28/22 00:35 71 18 124/62 (82) 09/28/22 00:20 78 18 123/66 (85) 09/28/22 00:05 67 18 128/62 (84) 09/27/22 23:50 73 18 137/65 (89) 09/27/22 23:35 67 18 124/62 (82) 09/27/22 23:20 69 18 134/61 (85) 09/27/22 23:05 70 18 140/63 (88) 09/27/22 22:50 36.6 69 18 148/72 (97) 09/27/22 22:35 70 18 137/65 (89) 09/27/22 22:20 75 18 126/57 (80) 09/27/22 22:00 64 18 120/62 (81) 09/27/22 21:45 57 18 117/58 (77) 09/27/22 21:30 72 18 130/60 (83) 09/27/22 21:15 70 18 125/60 (81) 5/19/23 20:45 78 18 114/56 (75) 09/27/22 20:30 73 18 115/58 (77) 09/27/22 20:15 77 18 127/60 (82) 09/27/22 20:00 68 18 116/60 (78) 09/27/22 19:45 83 18 118/68 (85) 09/27/22 19:30 72 18 116/57 (76) 09/27/22 19:15 36.7 75 18 113/63 (80) 09/27/22 15:00 69 105/51 (69) 96 09/27/22 14:57 62 106/53 (70) 96 09/27/22 14:54 74 102/52 (69) 96 09/27/22 14:51 68 115/55 (75) 95 09/27/22 14:48 72 111/56 (74) 95 09/27/22 14:45 70 111/53 (72) 95 09/27/22 14:42 76 113/54 (73) 96 09/27/22 14:39 75 115/58 (77) 96 09/27/22 14:36 77 111/55 (73) 96 09/27/22 14:33 71 109/49 (69) 97 09/27/22 14:30 76 111/56 (74) 97 09/27/22 14:27 79 113/54 (73) 96 09/27/22 14:25 89 114/57 (76) 96 09/27/22 14:22 73 124/58 (80) 97 09/27/22 14:19 36.4 74 122/56 (78) 96 09/27/22 14:16 83 123/67 (85) 97 09/27/22 14:13 67 120/58 (78) 09/27/22 14:10 73 121/76 (91) 97 Room Air 09/27/22 14:00 78 117/59 (78) 09/27/22 13:45 74 122/57 (78) 09/27/22 13:30 72 130/68 (88) 09/27/22 13:00 75 130/68 (88) 09/27/22 12:45 76 127/60 (82) 09/27/22 12:30 82 119/56 (77) 09/27/22 12:15 68 114/56 (75) 09/27/22 12:05 84 118/64 (82) 09/27/22 11:50 36.9 86 96/46 (63) Room Air 09/27/22 10:30 36.8 96 20 94 Room Air 09/27/22 10:30 36.8 96 20 112/56 (74) 94 Room Air I & O 09/28/22 07:00 Intake Total 1682.5 ml Balance 1682.5 ml Labs Laboratory Tests 09/27/22 11:00: White Blood Count 13.4H, Red Blood Count 3.73L, Hemoglobin 10.0L, Hematocrit 30L , Mean Corpuscular Volume 81, Mean Corpuscular Hemoglobin 27, Mean Corpuscular Hemoglobin Concent 33, Red Cell Distribution Width 13.8, Platelet Count 364, Mean Platelet Volume 9.6, Immature Granulocyte % (Auto) 1, Neutrophils (%) (Auto) 78H, Lymphocytes (%) (Auto) 14, Monocytes (%) (Auto) 5, Eosinophils (%) (Auto) 3, Basophils (%) (Auto) 0, Neutrophils # (Auto) 10.4H, Lymphocytes # (Auto) 1.8, Monocytes # (Auto) 0.7, Eosinophils # (Auto) 0.4H, Basophils # (Auto) 0.0, Immature Granulocyte # (Auto) 0.1, Syphilis Serology Non-Reactive 09/28/22 05:45: White Blood Count 14.5H, Red Blood Count 3.15L, Hemoglobin 8.6L, Hematocrit 26L, Mean Corpuscular Volume 82, Mean Corpuscular Hemoglobin 27, Mean Corpuscular Hemoglobin Concent 34, Red Cell Distribution Width 13.9, Platelet Count 305, Mean Platelet Volume 10.2, Immature Granulocyte % (Auto) 1, Neutrophils (%) (Auto) 78H, Lymphocytes (%) (Auto) 14, Monocytes (%) (Auto) 5, Eosinophils (%) (Auto) 2, Basophils (%) (Auto) 0, Neutrophils # (Auto) 11.2H, Lymphocytes # (Auto) 2.0, Monocytes # (Auto) 0.8, Eosinophils # (Auto) 0.3, Basophils # (Auto) 0.0, Immature Granulocyte # (Auto) 0.1 ANGELA MACDONALD MD September 28, 2022 08:22
[2022-09-28] MEDS ORDERED: IRON SUCROSE 200 MG/10 ML (VENOFER) VIAL IV NR (08:30)
[2022-09-28] MEDS ORDERED: AMPICILLIN FOR IV USE 2,000 MG in NS (IVPB) 50 ML IV SCH (10:11)
[2022-09-28] MEDS: CATHETER FLUSH 10 ML SYR IV SCH ×2 (19:33→19:34)
[2022-09-28] MEDS ORDERED: MEASLES,MUMPS,RUBELLA 1 EA INJ ONE (20:15)
[2022-09-29] MEDS: IBUPROFEN 600 MG (MOTRIN) TAB PO SCH ×2 (01:57→09:10)
[2022-09-29 02:05] VITALS: BP 98/56
[2022-09-29] MEDS ORDERED: IBUP-844 PO (08:17)
[2022-09-29] MEDS ORDERED: DOCU100C37 PO (08:17)
[2022-09-29 09:10] VITALS: BP 112/56
[2022-09-29] MEDS: FERROUS SULF 325 MG (IRON) TAB PO SCH (09:10)
[2022-09-29] MEDS: DOCUSATE SODIUM 100 MG (COLACE) CAP PO SCH (09:10)
[2022-09-29] MEDS: PRENATAL VITAMIN 1 EA TAB PO SCH (09:10)
--- NOTE | 2022-09-29 10:25 | Discharge Summary ---
Discharge Inst-[facility] Reconcile Patient Problems Problems Reviewed?: Yes Depart Medications New, Converted or Re-Newed RX: Transmitted to Pharmacy New Medications: Docusate Sodium (Docusate Sodium) 100 Mg Capsule 100 MG PO BID, #60 CAP 0 Refills Ibuprofen (Ibu) 600 Mg Tablet 600 MG PO Q6H PRN for PAIN, #60 TAB 0 Refills Continued Medications: Albuterol Sulfate (Ventolin Hfa) 1 Puff Puff 1 PUFF INH Q4H, EA 1 PUFF = 90 MCG Ascorbic Acid/Ascorbate Sodium (Vitamin C 250 mg Tablet Chew) 250 Mg Tab.chew 250 MG PO, TAB Calcium Carbonate (Tums Freshers) 200 Mg Calcium (500 Mg) Tab.chew 200 MG PO PRN, TAB Famotidine (Pepcid AC) 10 Mg Tablet 10 MG PO ONCE PRN for d, TAB Hydrocortisone/Aloe Vera (Hydrocortisone Plus 1% Cream) 1 % Cream..g. 28.4 GM TP, EA Iron,Carbonyl (Feosol) 45 Mg Tablet 45 MG PO, TAB Nicotine (Nicotine Patch) 7 Mg/24 Hour Patch.td24 7 MG TD DAILY, PATCH Vit W-Ca,Fe,FA(<1 mg) ( Vitamins) 27 Mg Iron-800 Mcg Tablet 1 EACH PO, TAB Follow Up/Instructions Goal/Follow Up: Follow up with Dr. Lane on December 05 at 9:20 am at [facility]. Activity Activity: Activity as Tolerated (avoid strenuous activity x 6 weeks) Driving Instructions: You May Drive Nothing Inside Vagina: No Douching, No [place] Diet Discharge Diet: No Restrictions Symptoms to Report to : Bleeding Excessive, Fever Over 101 Degrees F, Pain/Pressure in Chest, Vaginal Bleeding Increase, Cramps in Feet or Legs, Vaginal Discharge Foul, Shortness of Breath For Any Problems or Questions: Contact Your Physician ANGELA LANE MD September 29, 2022 10:25
--- NOTE | 2022-09-29 10:28 | Discharge Summary ---
Discharge Summary Hospital Course Problems Reviewed?: Yes Problems/Diagnosis: (1) labor Status: Acute Qualifiers: Qualified Codes: O60.14X0 - labor third trimester with delivery third trimester, not applicable or unspecified Hospital Course Date of Admission: September 27, 2022 at 10:10 Admission Diagnosis : Family Physician/Provider: No,Local Physician Date of Discharge: 09/29/22 Discharge Diagnosis: spontaneous vaginal delivery at 36 weeks Asymptomatic acute blood loss anemia Mild intermittent asthma Hospital Course: 37 yo G8 now P3 presented to clinic with leaking fluid for several hours, found to have positive nitrazine, pooling and ferning and was sent to hospital for augmentation of labor. Delivered via without complication and had routine course with asymptomatic anemia, treated with iron. Labs and Pending Lab Test: Home Meds Active Docusate Sodium 100 Mg Capsule 100 Mg PO BID Ibu (Ibuprofen) 600 Mg Tablet 600 Mg PO Q6H PRN Reported Nicotine Patch (Nicotine) 7 Mg/24 Hour Patch.td24 7 Mg TD DAILY Tums [place]hers (Calcium Carbonate) 200 Mg Calcium (500 Mg) Tab.chew 200 Mg PO PRN Pepcid AC (Famotidine) 10 Mg Tablet 10 Mg PO ONCE PRN Ventolin Hfa (Albuterol Sulfate) 1 Puff Puff 1 Puff INH Q4H 1 PUFF = 90 MCG Vitamin C 250 mg Tablet Chew (Ascorbic Acid/Ascorbate Sodium) 250 Mg Tab.chew 250 Mg PO Hydrocortisone Plus 1% Cream (Hydrocortisone/Aloe Vera) 1 % Cream..g. 28.4 Gm TP Feosol (Iron,Carbonyl) 45 Mg Tablet 45 Mg PO Vitamins ( Vit W-Ca,Fe,FA(<1 mg)) 27 Mg Iron-800 Mcg Tablet 1 Each PO Discharge Physical Examination Allergies: Coded Allergies: acetaminophen (Verified Allergy, Mild, Nausea, 09/20/22) and dizziness hydrocodone (Verified Allergy, Mild, Nausea, 09/20/22) and dizziness Vitals & I&Os Vital Signs Date Time Temp Pulse Resp B/P (MAP) Pulse Ox O2 Delivery O2 Flow Rate FiO2 09/29/22 02:05 37.1 72 16 98/56 (70) 99 Room Air General Appearance: No Apparent Distress Respiratory: Lungs Clear, Normal Breath Sounds Cardiovascular: Regular Rate, Rhythm Skin: Normal Color, Warm/Dry Neurologic/Psychiatric: Alert, No Motor/Sensory Deficits RENAE,ANGELA N MD September 29, 2022 10:28
== END 2022-09-29 10:55 | disposition home or self-care (01) | DRG 806 ==
LOC: LDRP 10:10
PROVIDERS: ADMIT Family Medicine; ATTEND Family Medicine
PROC: 10E0XZZ Delivery of Products of Conception, External Approach (ICD-10-PCS; principal; 2022-09-27)
DX: O42.013 Preterm premature rupture of membranes, onset of labor within 24 hours of rupture, third trimester (principal); D62 Acute posthemorrhagic anemia; Z37.0 Single live birth; O71.82 Other specified trauma to perineum and vulva; O99.513 Diseases of the respiratory system complicating pregnancy, third trimester; J45.20 Mild intermittent asthma, uncomplicated; O90.81 Anemia of the puerperium; Z3A.36 36 weeks gestation of pregnancy
CPT/HCPCS: 36415; 85025; 86780; 86850; 86900; 86901; 90707